=== PATIENT | male | born 1985 | race Caucasian/White ===

== ENCOUNTER 2019-03-31 03:59 | Emergency (ER) | payer MEDICAID ==
[2019-03-31 04:10] VITALS: BP 140/82; PULSE 134; O2SAT 97
[2019-03-31] MEDS ORDERED: Pepcid 20 MG VIAL IV ONE (04:11)
[2019-03-31] MEDS ORDERED: Sodium Chloride 0.9% 1000 ML 1,000 ML IV STA (04:11)
[2019-03-31] MEDS ORDERED: Zofran 4 MG/2 ML VIAL IV ONE (04:11)
--- NOTE | 2019-03-31 04:22 | ERPHSYRPT ---
- History of Present Illness Time Seen by Provider: 03/31/19 04:12 Historian: patient Exam Limitations: clinical condition Patient Subjective Stated Complaint: pt states he has been havaing lt lower abd pain for last several months. states he has been diagnosed with stomach problems and has not followed up. Triage Nursing Assessment: pt alert and oriented, answers questions approp. pt rambling at times. pt ambulatoryiw th steady gait noted. arrive with law enforcement. abd soft and nontender to light palpation. bowel sounds present. respirations nonlabored with lungs cta. Physician History: PATIENT WITH LONGSTANDING ALCOHOL ABUSE COMPLAINS OF UPPER ABDOMINAL PAIN FOR YEARS, BROUGHT TO EMERGENCY ROOM BY POLICE FOR SPOUSAL ALTERCATION. PATIENT COMPLAINS OF DRY HEAVES AND ABDOMINAL PAIN. DENIES EMESIS, DIARRHEA OR FEVER. Timing/Duration: week(s) Activities at Onset: none Quality: sharpness, stabbing Abdominal Pain Onset Location: epigastric Pain Radiation: no radiation Severity of Pain-Max: moderate Severity of Pain-Current: moderate Modifying Factors: Improves With: other (NAUSEA, DRY HEAVES) Associated Symptoms: nausea Previous symptoms: same symptoms as today Allergies/Adverse Reactions: Penicillins Allergy (Verified 03/31/19 04:10) Home Medications: Dextroamphetamine/Amphetamine [Adderall 20 mg Tablet] 20 mg PO DAILY 03/31/19 [ History] Hydrocodone Bit/Acetaminophen [Hydrocodon-Acetaminoph 7.5-325] 1 each PO BIDPRN PRN 03/31/19 [History] Hx Tetanus, Diphtheria Vaccination/Date Given: Yes (2009) Hx Influenza Vaccination/Date Given: No Hx Pneumococcal Vaccination/Date Given: No Immunizations Up to Date: Yes - Review of Systems Constitutional: No Fever, No Chills Eyes: No Symptoms Ears, Nose, & Throat: No Symptoms Respiratory: No Symptoms, No Cough, No Dyspnea Cardiac: No Symptoms, No Chest Pain, No Edema, No Syncope Abdominal/Gastrointestinal: Abdominal Pain, Nausea, No Vomiting, No Diarrhea Genitourinary Symptoms: No Symptoms, No Dysuria Musculoskeletal: No Symptoms, No Back Pain, No Neck Pain Skin: No Symptoms, No Rash Neurological: No Dizziness, No Focal Weakness, No Sensory Changes Psychological: No Symptoms Endocrine: No Symptoms Hematologic/Lymphatic: No Symptoms All Other Systems: Reviewed and Negative - Past Medical History Pertinent Past Medical History: No GI Medical History: GERD Other Medical History: stomach problems - Past Surgical History Past Surgical History: Yes Other Surgical History: PLASTIC SURGERY TO FACE FROM DOG BITE. - Social History Smoking Status: Current every day smoker How long have you smoked: 8 yrs Exposure to second hand smoke: No Drug Use: none Patient Lives Alone: No - Nursing Vital Signs Nursing Vital Signs: Initial Vital Signs Temperature 97.8 F 03/31/19 04:00 Pulse Rate 134 H 03/31/19 04:00 Respiratory Rate 18 03/31/19 04:00 Blood Pressure 140/82 03/31/19 04:00 O2 Sat by Pulse Oximetry 97 03/31/19 04:00 Pain Scale Pain Intensity 9 - Physical Exam General Appearance: no apparent distress, alert Eye Exam: PERRL/EOMI, eyes nml inspection Ears, Nose, Throat Exam: normal ENT inspection, pharynx normal, moist mucous membranes Neck Exam: normal inspection, non-tender, supple, full range of motion Respiratory Exam: normal breath sounds, lungs clear, No respiratory distress Cardiovascular Exam: regular rate/rhythm, normal heart sounds Gastrointestinal/Abdomen Exam: soft, normal bowel sounds, other (NONTENDER), No tenderness, No mass Back Exam: normal inspection, normal range of motion, No CVA tenderness, No vertebral tenderness Extremity Exam: normal inspection, normal range of motion, pelvis stable Neurologic Exam: alert, oriented x 3, cooperative, normal mood/affect, nml cerebellar function, sensation nml, No motor deficits Skin Exam: normal color, warm, dry SpO2 Interpretation: normal SpO2: 97 Ordered Tests: Active Orders 24 hr Category Date Time Status Clean Catch Urine Specimen STAT Care 03/31/19 04:11 Ordered IV Insertion STAT Care 03/31/19 04:11 Ordered ABDOMEN AND PELVIS W CONTRAST [CT] Stat Exams 03/31/19 04:15 Ordered AMYLASE Stat Lab 03/31/19 04:11 Ordered BMP Stat Lab 03/31/19 04:11 Ordered CBC W DIFF Stat Lab 03/31/19 04:11 Ordered ETHYL ALCOHOL Stat Lab 03/31/19 04:16 Ordered LIPASE Stat Lab 03/31/19 04:11 Ordered UA W/RFX UR CULTURE Stat Lab 03/31/19 04:11 Uncollected Urine Triage Profile Stat Lab 03/31/19 04:11 Uncollected Medication Summary Generic Name Dose Route Start Last Admin Trade Name Freq PRN Reason Stop Dose Admin Sodium Chloride 1,000 mls @ 999 mls/hr 03/31/19 04:11 Sodium Chloride 0.9% 1000 Ml IV 03/31/19 05:11 .Q1H1M STA Discontinued Medications Generic Name Dose Route Start Last Admin Trade Name Freq PRN Reason Stop Dose Admin Famotidine 20 mg 03/31/19 04:11 Pepcid 20 Mg Vial IV 03/31/19 04:12 STAT ONE Ondansetron HCl 4 mg 03/31/19 04:11 Zofran 4 Mg/2 Ml Vial IV 03/31/19 04:12 STAT ONE - Progress Progress Note: 03/31/19 04:25 IV NORMAL SALINE 1 LITER/HR. PATIENT REFUSES LAB DRAW, IV FLUIDS OR URINE FOR DRUG SCREEN. PATIENT SIGNS AMA, RISKS VS BENEFIT DISCUSSED WITH PATIENT 03/31/19 04:31 - Departure Departure Disposition: AMA, [facility] Clinical Impression: ABDOMINAL PAIN Condition: Stable Critical Care Time: No Referrals: TIMO LEYVA [Primary Care Provider] - Additional Instructions: RETURN TO EMERGENCY ROOM FOR PROBLEMS.
== END 2019-03-31 04:30 | disposition left against medical advice (07) ==
LOC: ED 03:59
DX: R10.9 Unspecified abdominal pain (principal); Z02.89 Encounter for other administrative examinations
CPT/HCPCS: 99283